=== PATIENT | male | born 1960 ===

== ENCOUNTER 2017-07-11 06:04 | Day surgery (SDC) | payer BC ==
[2017-06-29 12:10] VITALS: BMI 23.8
[2017-07-11] MEDS ORDERED: Bupivacaine 0.5%/Epi 1:200,000 (10 ML SOL) ONE (07:30)
[2017-07-11] MEDS ORDERED: ceFAZolin IV 2 gm in Dextrose 1 GM/50 ML BAG IVPB ONE (07:30)
[2017-07-11] MEDS ORDERED: Lidocaine 1% Inj (20ml) ONE (07:30)
[2017-07-11] MEDS ORDERED: Propofol 10 mg/ml Inj (20 ML) ONE (07:44)
[2017-07-11] MEDS ORDERED: Midazolam 2 MG/2 ML VIAL ONE (07:44)
[2017-07-11] MEDS ORDERED: Rocuronium 10 mg/ml (5 ml) ONE (07:45)
[2017-07-11] MEDS ORDERED: Lactated Ringer's 1,000 ML IV ONE (07:45)
[2017-07-11] MEDS ORDERED: Bupivacaine-Epi 0.25%-1:200,000 PF Inj ONE (07:55)
[2017-07-11] MEDS ORDERED: Neostigmine Methylsulfate 3mg/3ml Syringe IV ONE (09:45)
[2017-07-11] MEDS ORDERED: Bupivacaine HCl 0.25% PF (10 ml) Inj ONE ×2 (09:48→09:52)
[2017-07-11] MEDS ORDERED: Sodium Chloride 0.9% 500 ML IV ONE ×4 (09:55→11:00)
--- NOTE | 2017-07-11 11:03 | PCM.SURG1 ---
Surgeon's Initial Post Op Note - Surgeon's Notes Surgeon: Miriam Cook Jelly: Loi PGY3, Blaine ORTEZ Type of Anesthesia: General Endo, Local Pre-Operative Diagnosis: L inguinal hernia Operative Findings: B/L direct/indirect inguinal hernias Post-Operative Diagnosis: B/L direct/indirect inguinal hernias Operation Performed: robotic assisted B/L TAP inguinal hernia repair Specimen/Specimens Removed: none Estimated Blood Loss: EBL {In ML}: 5 Blood Products Given: N/A Drains Used: No Drains Post-Op Condition: Good Date of Surgery/Procedure: 07/11/17 Time of Surgery/Procedure: 11:03
[2017-07-11] MEDS ORDERED: HYDROmorphone 0.5 mg/0.5 ml ISec IVP PRN (11:05)
[2017-07-11 12:58] VITALS: O2SAT 100
[2017-07-11 15:17] VITALS: BP 129/65; PULSE 73; RESP 18; TEMP 97.6
--- NOTE | 2017-07-11 20:43 | OP ---
PROCEDURE DATE: 07/11/2017 PREOPERATIVE DIAGNOSES: Left inguinal hernia, possible bilateral inguinal hernia. POSTOPERATIVE DIAGNOSES: 1. Left direct and indirect inguinal hernia. 2. Right direct and indirect inguinal hernia. PROCEDURES DONE: 1. Robotic left inguinal hernia repair with a mesh. 2. Robotic right inguinal hernia repair with a mesh. PROCEDURE DONE BY: Jean-Paul Pineda MD HV[employer] SERVICES PROFESSIONAL: SHAINA Powers, and Aston Gandara, PGY-3 resident. ANESTHESIA: General endotracheal tube anesthesia. ESTIMATED BLOOD LOSS: Around 10 mL. DRAINS: None. PATHOLOGY: None. COMPLICATIONS: None. INTRAOPERATIVE FINDINGS: The patient had large direct left inguinal hernia as well as a small indirect left inguinal hernia, and the on the right side the patient also had right inguinal hernia containing the omentum, and the patient has a direct and indirect component on the right side as well. DESCRIPTION OF PROCEDURE: On intraoperative steps, this 56-year-old male who was diagnosed with left inguinal hernia with possible bilateral inguinal hernia, and the patient was consented for the robotic left inguinal hernia repair with the mesh, possible bilateral repair, brought to the OR and placed supine on the operative table. After induction of the anesthesia, the abdomen was prepped and draped in usual sterile fashion. The Jaramillo catheter was placed and supraumbilical incision was made up inside the skin, subcutaneous tissue and fascia. The peritoneal cavity was entered, pneumo was created. Another three 8-mm port was placed in upper abdomen. Robot was brought in, camera arm as well as arm 1 and arm 2 were docked, and the patient was placed in Trendelenburg position before docking the robot. Now the pelvis was examined, the patient found to have large left direct inguinal hernia. The patient also had right inguinal hernia and the omentum was attached to the right inguinal hernia and the picture was taken. The patient also had very small indirect hernia on the right side as well. Now, the peritoneum was dissected from the left ASIS up to the midline and from the midline up to the right ASIS and the peritoneum was dissected down up to the pubic symphysis and space of Retzius, and laterally the peritoneum was dissected free from the lateral abdominal wall and vas deferens and spermatic cord vessels were identified. The direct and indirect hernial sac was reduced back in to the peritoneal cavity, and now left direct empty sac was everted and it was stable in the midline. Now the similar dissection was done on the right side medially up to space of Retzius, laterally to the lateral abdominal wall and the vas deferens and spermatic cord vessels were identified. The direct and indirect hernial sac was reduced back in to the peritoneal cavity and inferior dissection was done up to the peritoneal reflection on the right side as well as on the left side. After proper dissection, the first left anatomical mesh was placed and the mesh was implanted. After that, the right anatomical mesh was placed and mesh was implanted. After proper implantation of the mesh, the peritoneum was sutured with 0-Vicryl interrupted suture and 3-0 PDS V-Loc continuous sutures and all the instruments were taken out, the robot was undocked. All the ports were taken down under vision, pneumo was deflated. The umbilical port side was closed in 2 layers, the fascia with 0-Vicryl interrupted sutures, skin with a 4-0 Monocryl, and dry sterile dressing was applied. The patient tolerated the procedure well. Count of the instruments was correct. There was no apparent complication. The patient was extubated in OR, sent to the postanesthesia care unit in stable condition. Jean-Paul Pineda MD
== END 2017-07-11 15:27 | disposition home or self-care (01) ==
LOC: C.SDS 06:04
PROVIDERS: ATTEND Surgery Surgical Critical Care
DX: K40.20 Bilateral inguinal hernia, without obstruction or gangrene, not specified as recurrent (principal)
CPT/HCPCS: 49650; C1781; J0690; J2001; J2250; J2704; J2710; J3010; J7040; J7120; S2900